=== PATIENT | female | born 1985 | race Caucasian/White ===

== ENCOUNTER 2017-10-26 20:59 | Emergency (ER) | payer MEDICAID ==
[~2017-10-26] VITALS: Ht 154.9 cm; Wt 90.7 kg
[2017-10-26 21:15] VITALS: BP_SYST 150
[2017-10-26] MEDS ORDERED: LIDOCAINE 1% 10 MG/ML, 20 ML MDV INJ ONE (21:15)
[2017-10-26 22:10] VITALS: BP_SYST 135
== END 2017-10-26 22:10 | disposition home or self-care (01) ==
LOC: SED 20:59
DX: O26.892 Other specified pregnancy related conditions, second trimester (principal); L02.211 Cutaneous abscess of abdominal wall; Z3A.16 16 weeks gestation of pregnancy
CPT/HCPCS: 99281

== ENCOUNTER 2018-03-17 21:30 | Observation (INO) | payer MEDICAID ==
[~2018-03-17] VITALS: Ht 154.9 cm; Wt 104.3 kg
== END 2018-03-17 22:30 | disposition home or self-care (01) ==
LOC: SPU 21:30
PROVIDERS: ADMIT Specialist; ATTEND Specialist
DX: O26.893 Other specified pregnancy related conditions, third trimester (principal); R20.0 Anesthesia of skin; R22.9 Localized swelling, mass and lump, unspecified; Z3A.34 34 weeks gestation of pregnancy
CPT/HCPCS: 81002-TC; G0378

== ENCOUNTER 2019-03-10 21:56 | Emergency (ER) | payer MEDICAID ==
[~2019-03-10] VITALS: Ht 154.9 cm; Wt 99.8 kg
--- NOTE | 2019-03-10 22:04 | NUR ---
Patient to ER bed 3 to gown for evaluation. Side rails up.
[2019-03-10 22:05] VITALS: BP_SYST 126
--- NOTE | 2019-03-10 22:15 | NUR ---
Pt provided with urine cup for urine sample collection
[2019-03-10] MEDS ORDERED: ONDANSETRON HCL 4 MG/2 ML VIAL IVP ONE (22:30)
[2019-03-10] MEDS ORDERED: NACL 0.9% 1,000 ML IV ONE (22:30)
[2019-03-10 22:36] LABS: BILIRUBIN,URINE NEGATIVE (NEGATIVE); BLOOD, URINE NEGATIVE (NEGATIVE); CLARITY/URINE SL HAZY (CLEAR); COLOR,URINE YELLOW (YELLOW); GLUCOSE,URINE NEGATIVE (NEGATIVE); KETONES,URINE NEGATIVE (NEGATIVE); LEUKOCYTE ESTERASE ,URINE NEGATIVE (NEGATIVE); NITRITE, URINE NEGATIVE (NEGATIVE); PROTEIN URINE NEGATIVE (NEGATIVE); UROBILINOGEN,URINE 0.2 (0.2-1.0)
[2019-03-10 23:03] LABS: BASOPHILS % (AUTO) 0.3 % (0.0-2.0); EOSINOPHILS # (AUTO) 0.1 K/uL (0.0-0.4); EOSINOPHILS % (AUTO) 1.1 % (0.0-4.0); HEMATOCRIT 32.4 % (36-48); HEMOGLOBIN 10.2 g/dL (12.0-16.0); LYMPHOCYTES # (AUTO) 1.3 K/uL (1.0-5.5); LYMPHOCYTES % (AUTO) 23.1 % (20.5-51.5); MEAN CORPUSCULAR HEMOGLOBIN 21 pg (27-31); MEAN CORPUSCULAR HGB CONC 31 % (32-36); MEAN CORPUSCULAR VOLUME 67 fL (79.0-98.0); MONOCYTES # (AUTO) 0.2 K/uL (0.0-1.0); MONOCYTES % (AUTO) 4.2 % (1.7-9.3); NEUTROPHILS # (AUTO) 4.1 K/uL (1.8-7.7); NEUTROPHILS % (AUTO) 71.3 % (40.0-70.0); PLATELET COUNT (AUTO) 305 K/uL (130-430); RED BLOOD CELL COUNT(AUTO) 4.84 MIL/uL (4.2-6.2); RED CELL DISTRIBUTION WIDTH 17.1 % (9.0-15.0); WHITE BLOOD COUNT (AUTO) 5.7 K/uL (4.8-10.8)
--- NOTE | 2019-03-10 23:06 | NUR ---
ER at bedside examining patient.
[2019-03-10 23:29] LABS: CALCIUM 7.7 mg/dL (8.4-11.0); CREATININE 0.58 mg/dL (0.55-1.30); POTASSIUM 3.5 mmol/L (3.5-5.1)
[2019-03-10 23:33] LABS: ALBUMIN 3.2 g/dL (3.4-4.8); TOTAL BILIRUBIN 0.3 mg/dL (0.0-1.0)
--- NOTE | 2019-03-10 23:35 | NUR ---
Pt BIB family to ED C/O diarrhea, vomiting, and generalized weakness. She reports diarrhea began yesterday at 2PM after eating a burrito. Today symptoms worsened. She reports multiple episode of too many to count of watery diarrhea. She also endorses 2 episodes of associated vomiting with generalized headache and weakness, that began today. She states she becomes dizzy when standing up quickly. No other injuries and or complaints noted VSS no s/s of acute distress Resting on gurney rails up
--- NOTE | 2019-03-11 00:05 | NUR ---
VSS no s/s of acute distress. IVF well tolerated. Resting on gurney rails up
--- NOTE | 2019-03-11 00:28 | NUR ---
VSS no s/s of acute distress. Resting on gurney rails up
--- NOTE | 2019-03-11 00:50 | NUR ---
Dr. Tovar bedside for Pt update
[2019-03-11 01:40] VITALS: BP_SYST 126
--- NOTE | 2019-03-11 01:40 | NUR ---
Patient given written and verbal discharge instructions and verbalizes understanding. ER MD discussed with patient the results and treatment provided. Patient in stable condition. ID arm band removed. IV catheter removed intact and dressing applied no s/s of active bleeding. Rx of Zofran given. Patient educated on pain management and to follow up with PMD. Pain Scale 0/10 Opportunity for questions provided and answered. Medication side effect fact sheet provided.
== END 2019-03-11 01:40 | disposition home or self-care (01) ==
LOC: SED 21:56
DX: R19.7 Diarrhea, unspecified (principal); R11.10 Vomiting, unspecified; R53.1 Weakness; Z88.5 Allergy status to narcotic agent; I10 Essential (primary) hypertension
CPT/HCPCS: 36415; 80053; 81003; 81025; 83690; 84703; 85025; 96361; 96374; 99283; J2405

== ENCOUNTER 2021-12-19 20:24 | Emergency (ER) | payer MEDICAID ==
[~2021-12-19] VITALS: Ht 154.9 cm; Wt 104.3 kg
--- NOTE | 2021-12-19 20:30 | NUR ---
Dr Murry evaluating patient in the triage room
[2021-12-19 20:44] VITALS: BP_SYST 156
[2021-12-19 20:45] VITALS: BP_SYST 156
--- NOTE | 2021-12-19 21:40 | NUR ---
Pt brought by self, A&Ox4, pt presents to ER with L knee pain/swelling , denies trauma, skin pink and warm, cap refill <3, VSS, will continue to monitor
[2021-12-19] MEDS ORDERED: KETOROLAC TROMETHAMINE 60 MG/2 ML VIAL IM ONE (21:45)
--- NOTE | 2021-12-19 21:50 | NUR ---
Dr Murry evaluating patient in the triage room
[2021-12-19] MEDS ORDERED: NAPR-1172 PO (22:02)
--- NOTE | 2021-12-19 23:00 | NUR ---
Patient given written and verbal discharge instructions and verbalizes understanding. ER MD discussed with patient the results and treatment provided. Patient in stable condition. ID arm band removed. Rx of Naproxen given. Patient educated on pain management and to follow up with PMD. Pain Scale 3/10 Opportunity for questions provided and answered. Medication side effect fact sheet provided.
== END 2021-12-19 20:45 | disposition home or self-care (01) ==
LOC: SED 20:24
DX: S83.92XA Sprain of unspecified site of left knee, initial encounter (principal); I10 Essential (primary) hypertension; Z88.6 Allergy status to analgesic agent; Z79.899 Other long term (current) drug therapy; X58.XXXA Exposure to other specified factors, initial encounter; Y93.89 Activity, other specified; Y92.89 Other specified places as the place of occurrence of the external cause; Y99.8 Other external cause status
CPT/HCPCS: 99283; 73564; 81025; 96372; J1885

== ENCOUNTER 2022-06-17 14:03 | Emergency (ER) | payer MEDICAID ==
[~2022-06-17] VITALS: Ht 154.9 cm; Wt 99.8 kg
[~2022-06-17 14:03] MED LIST: NAPR-1172 PO
[2022-06-17 14:15] VITALS: BP_SYST 177
--- NOTE | 2022-06-17 14:22 | NUR ---
Patient triaged and placed in waiting room. VSS and patient appears in no acute distress at this time. Accompanied by SELF, awaiting available bed, and MD notified of need for MSE.
--- NOTE | 2022-06-17 14:39 | NUR ---
ER DR. KEEN EXAMINING PT IN TRIAGE
[2022-06-17 14:47] LABS: BILIRUBIN,URINE NEGATIVE (NEGATIVE); BLOOD, URINE NEGATIVE (NEGATIVE); CLARITY/URINE CLEAR (CLEAR); COLOR,URINE YELLOW (YELLOW); GLUCOSE,URINE NEGATIVE (NEGATIVE); KETONES,URINE NEGATIVE (NEGATIVE); LEUKOCYTE ESTERASE ,URINE NEGATIVE (NEGATIVE); NITRITE, URINE NEGATIVE (NEGATIVE); PROTEIN URINE NEGATIVE (NEGATIVE); UROBILINOGEN,URINE 0.2 (0.2-1.0)
[2022-06-17 15:09] LABS: BASOPHILS % (AUTO) 0.1 % (0.0-2.0); EOSINOPHILS # (AUTO) 0.1 K/uL (0.0-0.4); EOSINOPHILS % (AUTO) 1.4 % (0.0-4.0); HEMATOCRIT 34.2 % (36-48); HEMOGLOBIN 11.1 g/dL (12.0-16.0); LYMPHOCYTES % (AUTO) 13.8 % (20.5-51.5); MEAN CORPUSCULAR HEMOGLOBIN 22 pg (27-31); MEAN CORPUSCULAR HGB CONC 32 % (32-36); MEAN CORPUSCULAR VOLUME 68 fL (79.0-98.0); MONOCYTES # (AUTO) 0.2 K/uL (0.0-1.0); MONOCYTES % (AUTO) 2.5 % (1.7-9.3); NEUTROPHILS # (AUTO) 5.7 K/uL (1.8-7.7); NEUTROPHILS % (AUTO) 82.2 % (40.0-70.0); PLATELET COUNT (AUTO) 313 K/uL (130-430); RED CELL DISTRIBUTION WIDTH 16.5 % (9.0-15.0); WHITE BLOOD COUNT (AUTO) 6.9 K/uL (4.8-10.8)
[2022-06-17 15:20] LABS: CALCIUM 8.4 mg/dL (8.4-11.0); CREATININE 0.55 mg/dL (0.55-1.30)
[2022-06-17 15:25] LABS: ALBUMIN 3.3 g/dL (3.4-4.8); TOTAL BILIRUBIN 0.3 mg/dL (0.0-1.0)
[2022-06-17] MEDS ORDERED: MECL-261 PO (16:09)
[2022-06-17 16:16] VITALS: BP_SYST 177
--- NOTE | 2022-06-17 16:16 | NUR ---
Patient given written and verbal discharge instructions and verbalizes understanding. ER MD discussed with patient the results and treatment provided. Patient in stable condition. ID arm band removed. IV catheter removed intact and dressing applied, no active bleeding. Rx of ANTIVERT given. Patient educated on pain management and to follow up with PMD. Pain Scale 0/10. Opportunity for questions provided and answered. Medication side effect fact sheet provided.
[2022-06-17] MEDS ORDERED: MECLIZINE HCL 25 MG TABLET (ANITVERT) ONE (16:20)
[2022-06-17] MEDS ORDERED: ACETAMINOPHEN 325 MG TABLET ONE (16:21)
[2022-06-17] MEDS ORDERED: ACETAMINOPHEN 500 MG TABLET PO ONE (16:30)
[2022-06-17] MEDS ORDERED: MECLIZINE HCL 25 MG TABLET (ANITVERT) PO ONE (16:30)
[2022-06-17] MEDS ORDERED: ACETAMINOPHEN 325 MG TABLET PO ONE (16:45)
== END 2022-06-17 16:16 | disposition home or self-care (01) ==
LOC: SED 14:03
DX: R42 Dizziness and giddiness (principal); I10 Essential (primary) hypertension; Z88.6 Allergy status to analgesic agent; Z79.899 Other long term (current) drug therapy
CPT/HCPCS: 99283; 80053; 85025; 36415; 81003; J8597